=== PATIENT | female | born 1950 | race Caucasian/White ===

== ENCOUNTER 2021-03-15 14:31 | Emergency (ER) | payer MEDICARE, SELFPAY ==
--- NOTE | ~2021-03-15 | XR_ITS ---
EXAMINATION: XR SHOULDER, LEFT CLINICAL INFORMATION: Left upper arm injury COMPARISON: None TECHNIQUE: Three views of the left shoulder. FINDINGS: There is no evidence of acute fracture or dislocation of the left shoulder. No calcific tendinitis. Mild spurring about the glenohumeral joint. Mild spurring about the acromioclavicular joint. Subchondral cyst formation seen about the site of insertion of the supraspinatus tendon. XR/XR shoulder LT min 2V IMPRESSION: No acute fracture, dislocation, or calcific tendinitis of the left shoulder.
--- NOTE | ~2021-03-15 | XR_ITS ---
EXAMINATION: XR ELBOW, LEFT CLINICAL INFORMATION: Trauma, pain COMPARISON: Trauma, pain TECHNIQUE: AP, lateral, and oblique views of the left elbow. FINDINGS: There is no fracture, dislocation, or elbow capsular effusion. No joint narrowing or erosive change. There is minor spurring from the medial and lateral epicondyles. XR/XR elbow LT min 3V IMPRESSION: 1. No acute bony abnormality. No effusion. 2. Spurring medial and lateral epicondyles.
[2021-03-15 15:42] VITALS: BP 179/86; PULSE 80; RESP 18; TEMP 36.6; O2SAT 95; BMI 39.3
--- NOTE | 2021-03-15 17:06 | ED.UPPEXIN ---
HPI - Extremity Injury (Upper) General Chief Complaint: Extremity Injury, Upper Stated Complaint: FALL L SHOULDER AND ARM INJ Time Seen by Provider: 03/15/21 16:40 Source: patient and family Mode of arrival: ambulatory Limitations: no limitations History of Present Illness complaint: injury to: left, shoulder, arm and elbow Onset (ago): hour(s) (Prior to arrival) Other injuries: none Place: home Severity: mild Relieving factors: none Exacerbating factors: movement of extremity Context: fall Associated symptoms: denies other symptoms Treatments prior to arrival: other (sling immobilizer ) Related Data Allergies Allergy/AdvReac Type Severity Reaction Status Date / Time Penicillins Allergy Unknown Verified 03/15/21 15:41 Review of Systems Review of Systems: Constitutional : No Weight loss, No Fever, No Chills, No Night Sweats, No Fatigue, No Malaise ENT/Mouth : No Hearing loss, No Ear Pain, No Nasal Congestion, No Sinus Pain, No Hoarseness, No sore throat, No Rhinorrhea, No Swallowing Difficulty Eyes: No Eye Pain, No Swelling, No Redness, No Foreign Body, No Discharge, No Vision Changes Cardiovascular : No Chest Pain, No SOB, No Dyspnea on Exertion, No Orthopnea, No Edema, No Palpitations Respiratory : No Cough, No Sputum, No Wheezing, No Smoke Exposure, No Dyspnea Gastrointestinal : No Nausea, No Vomiting, No Diarrhea, No Constipation, No abdominal Pain, No Hematochezia, No Melena Genitourinary : no irregular bleeding, No Dysuria, No Urinary Frequency, No Hematuria, No Urinary Incontinence, No Urgency, No Flank Pain, No Urinary Flow Changes, No Hesitancy Musculoskeletal : + left shoulder/elbow joint pain, No Myalgias, No Joint Swelling Skin : No Skin Lesions, No rash Neuro : No Weakness, No Numbness, No Paresthesias, No Loss of Consciousness, No Dizziness, No Headache Psych : No Anxiety/Panic, No Depression, No SI/HI/AH/VH, No Social Issues, Heme/Lymph: No Bruising, No Bleeding,No Lymphadenopathy Endocrine : No Polyuria, No Polydipsia, No Temperature Intolerance Yes all other systems are reviewed and are negative PMFSH Past Medical History Attestation statement: The following information was validated with the patient. Social History Social History Advance Directives: Yes Advance Directives Information Provided: Yes Advance Directives on File: No Physical Exam Vital Signs: Vital Signs: Last Vital Signs Temp 97.8 F 03/15/21 15:42 Pulse 80 03/15/21 15:42 Resp 18 03/15/21 15:42 BP 179/86 H 03/15/21 15:42 Pulse Ox 95 03/15/21 15:42 Body Mass Index 39.3 vital signs have been reviewed as normal and appeared to be correct. Blood pressure normal Heart rate normal. Respiration rate normal. Temperature normal. Oxygen saturation normal. Appearance: Alert. Oriented X3. No acute distress. Head: Normal external exam. Normocephalic. Atraumatic. Eyes: PERRLA. EOMI. Conjunctiva and sclera normal. Eyelids normal. ENT: Pharynx normal. Uvula midline. Moist mucous membranes. Neck: Normal inspection. Neck supple. FROM. CVS: Normal heart rate and rhythm. Respiratory: No respiratory distress. Painless inspiration. Skin: Skin warm and dry. Normal skin color. Normal skin turgor. No rashes/lesions/lacerations noted. Extremities: Patient with tenderness palpation to left upper arm at the mid to distal humerus and left elbow although no obvious deformities and no obvious ligament or tendon injury. Patient has full range of motion of the left hand/wrist/elbow/shoulder. Otherwise all other Extremities exhibit normal range of motion and nontender. Neuro: Oriented X 3. No motor deficit. No sensory deficit. Reflexes normal. Normal steady gait. No focal neuro deficits noted. Vascular: + radial pulses/+ 2 distal pedal pulses/+2 dorsalis pedis b/l. Normal cap refill. No cyanosis noted to upper extremity nails and lower extremity toes nails. Course Course Course Narrative: 70-year-old female presenting to the ED with complaints of left elbow/upper arm/shoulder pain after she had a mechanical fall in her house while she was cleaning the rug and she tripped on the rug landing on her left arm. Denies head injury loss of consciousness. Not on any blood thinners. Denies any symptoms prior to the fall. Denies any symptoms after fall only pain to the left arm. X-rays obtained and negative for any acute processes. Patient placed in a sling will DC home with instructions to follow-up with PCP and to return if any new or worsening symptoms she declined any symptomatic relief. Patient understands agrees with this plan. MDM - Extremity Injury (Upper) Medical Records Attestation: I reviewed the patient's medical records. Imaging Data Left shoulder/elbow x-rays: Attestation: I personally reviewed and interpreted this imaging study as follows: Radiologist's impression: FINDINGS: There is no evidence of acute fracture or dislocation of the left shoulder. No calcific tendinitis. Mild spurring about the glenohumeral joint. Mild spurring about the acromioclavicular joint. Subchondral cyst formation seen about the site of insertion of the supraspinatus tendon.? XR/XR shoulder LT min 2V IMPRESSION: No acute fracture, dislocation, or calcific tendinitis of the left shoulder. FINDINGS: There is no fracture, dislocation, or elbow capsular effusion. No joint narrowing or erosive change. There is minor spurring from the medial and lateral epicondyles.? XR/XR elbow LT min 3V IMPRESSION: ? 1. No acute bony abnormality. No effusion. 2. Spurring medial and lateral epicondyles. Procedures Orthopedic Splinting/Casting Injury #1: Side: left Upper Extremity Injury Location: shoulder, upper arm and elbow Upper Extremity Immobilizer: sling/shoulder immobilizer Discharge Plan Discharge Clinical Impression: Sprain of upper arm, left, Fall Patient Disposition: Home, Self-Care Instructions: Sprain (ED), Shoulder Immobilizer (ED) Referrals: Aayush Ornelas PA [Primary Care Provider] - 2 days Print Language: [place] Island[place]
== END 2021-03-15 17:35 | disposition home or self-care (01) ==
PROVIDERS: Emergency Provider Emergency Medicine; PCP Physician Assistant Medical
DX: S43.402A Unspecified sprain of left shoulder joint, initial encounter (principal); W01.0XXA Fall on same level from slipping, tripping and stumbling without subsequent striking against object, initial encounter; Y93.9 Activity, unspecified; Y92.019 Unspecified place in single-family (private) house as the place of occurrence of the external cause; Y99.9 Unspecified external cause status
CPT/HCPCS: 73030; 73080; 99283

== ENCOUNTER 2024-03-21 10:17 | Emergency (ER) | payer MEDICARE, SELFPAY ==
--- NOTE | ~2024-03-21 | XR_ITS ---
EXAMINATION: XR CHEST CLINICAL INFORMATION: cough COMPARISON: None available. TECHNIQUE: Frontal and lateral views of the chest were obtained. FINDINGS: No significant abnormality is noted involving the heart, lungs, mediastinum, bony thorax or soft tissues. XR/XR chest 2V IMPRESSION: Unremarkable examination. Electronically signed by: Oneil Cunningham MD 03/21/2024 11:03 AM [facility]
[2024-03-21 10:22] VITALS: BP 183/95; PULSE 88; RESP 19; TEMP 36.6; O2SAT 95; BMI 38.4
[2024-03-21 11:23] LABS: Influenza A PCR NEGATIVE (Negative); Influenza B PCR NEGATIVE (Negative); Resp Syncy Virus RNA Qual PCR NEGATIVE (Negative); SARS COV2 PCR INHOUSE NEGATIVE (Negative)
--- NOTE | 2024-03-21 12:55 | ED_ITS ---
HPI - General Adult General Chief complaint: Upper Respiratory Symptoms Stated complaint: l side pain Time Seen by Provider: 03/21/24 11:22 Source: patient Mode of arrival: ambulatory Limitations: no limitations History of Present Illness ED Provider: SUKHJINDER Her HPI narrative: 73 year old female presents w/ cough, fatigue, malaise X 1. 5 weeks. Reports when she coughs she gets sharp pain in her mid chest. Denies cp, sob, fevers, chills, nausea, vomiting, abd pain, headache, vision changes, dizziness, weakness. is sick with simiilar sx. Related Data Previous Rx's ?Medication ?Instructions ?Recorded albuterol sulfate 90 mcg/actuation 2 inh inhalation Q4-6H PRN 03/21/24 breath activated powder inhaler shortness of breath or wheezing #1 ea doxycycline hyclate 100 mg capsule 100 mg PO BID 10 days #20 caps 03/21/24 prednisone 20 mg tablet 20 mg PO DAILY 5 days #5 tabs 03/21/24 Allergies Allergy/AdvReac Type Severity Reaction Status Date / Time Penicillins Allergy Unknown Verified 03/21/24 10:24 Review of Systems Review of Systems: Yes all other systems are reviewed and are negative [facility] Past Medical History Attestation statement: The following information was validated with the patient. Source: old records reviewed and nursing notes reviewed Social History Social History Advance Directives: No Advance Directives Information Provided: No Do you have a plan to hurt others: No Plan Physical Exam ED Vital Signs: Vital Signs - 24 hr 03/21/24 10:22 Temperature 98 F Pulse Rate 88 Respiratory Rate 19 Blood Pressure 183/95 H Pulse Oximetry 95 Oxygen Delivery Method Room Air BMI result Body Mass Index 38.4 vss Appearance: Alert.? Oriented X3.? No acute distress.? Head: Normocephalic, atraumatic, no step-offs or deformities Eyes: Pupils equal, round and reactive to light.? CVS: Normal heart rate and rhythm.? Pulses normal.? Respiratory: No respiratory distress.? Breath sounds normal.? Abdomen: Soft and nontender.? Skin: Skin warm and dry.? Normal skin color.? Normal skin turgor.? Extremities: No lower extremity edema.? No calf ttp. 5/5 strength to bilateral upper and lower extremities Neuro: Oriented X 3.? No motor deficit.? No sensory deficit. CN 2-12 intact Course Reevaluation(s) Reevaluation #1: Plan- will dc paitent w/ atbx viral testing negative, CXR no acute findings. Advised to return w/ new or worsening sx. Patient verbalizes understanding of this. Time: 13:06 Medical Decision Making Medical Decision Making MDM Narrative: 1303 73 year old female presnts w/ cough and uRI sx x 1.5 weeks. sick w/ similar sx PE benign hx and pe concerning for bronchitits vs viral illness. No signs of ARDS, pna, PE, ACS. Unlikely metabolic derangements Plan- viral testing Differential Diagnosis Differential Diagnoses: The differential diagnosis associated with the presentation includes (hx and pe concerning for bronchitits vs viral illness. No signs of ARDS, pna, PE, ACS. Unlikely metabolic derangements ) Admission/Observation Consideration of admission/observation: Escalation of care including admis miley/observation considered Lab Data Labs: Lab Results 03/21/24 Range/Units 10:32 Influenza Type A (PCR) NEGATIVE (Negative) Influenza Type B (PCR) NEGATIVE (Negative) RSV RNA Qual (PCR) NEGATIVE (Negative) SARS-CoV-2 RNA (RT-PCR) NEGATIVE (Negative) Independent Interpretation I performed an independent interpretation of an: Plain X-Ray (XR/XR chest 2V IMPRESSION: Unremarkable examination.) Radiology Impression Discussion of test interpretation with radiology: I have reviewed the radiologist's reading. Critical Care Time Critical Care Time Critical Care Time: No Discharge Plan Discharge Clinical Impression: Bronchitis Patient Disposition: Home, Self-Care Instructions: Acute Bronchitis (ED) Additional Instructions: Take your medications as prescribed. If you were prescribed antibiotics today, it is important that you take your medication to their entirety, do not skip any doses, do not finish them early. Follow-up with your primary care provider this week. Return to the emergency department with new or worsening symptoms. In case of emergency call 911 Prescriptions: New doxycycline hyclate 100 mg capsule 100 mg PO BID 10 Days Qty: 20 0RF prednisone 20 mg tablet 20 mg PO DAILY 5 Days Qty: 5 0RF albuterol sulfate 90 mcg/actuation aerosol powdr breath activated 2 inh inhalation Q4-6H PRN (Reason: shortness of breath or wheezing) Qty: 1 0RF Referrals: Silvana Caruso MD [Emergency Provider] - 2 days Aayush Ornelas PA [Primary Care Provider] - Print Language: Lao
[2024-03-21 13:35] VITALS: BP 183/95; PULSE 88; RESP 19; TEMP 36.6; O2SAT 95
== END 2024-03-21 13:36 | disposition home or self-care (01) ==
PROVIDERS: Emergency Provider Emergency Medicine; PCP Physician Assistant Medical
DX: J40 Bronchitis, not specified as acute or chronic (principal); R05.9 Cough, unspecified; R07.89 Other chest pain; Z03.818 Encounter for observation for suspected exposure to other biological agents ruled out
CPT/HCPCS: 0241U; 71046; 99282; 99283

== ENCOUNTER 2024-08-20 08:16 | Outpatient (AMB) | payer MEDICARE, SELFPAY ==
--- OUTSIDE RECORDS SUMMARY | 2024-08-20 08:21 | XMS_ITS | Clinical Summary ---
Author Organization [address] [place] [address] [place] [phone] Phone Care Team Providers Care Plant Director Name Role Phone Aayush Ornelas Primary Care Provider [phone] Allergies Active Allergy Reactions Criticality Noted Date Comments Penicillins 06/11/2005 burning on urination Medications aspirin 81 mg EC tablet Take 1 Tablet by mouth daily. Active folic acid/vit B complex and C (B COMPLEX-VITAMIN C-FOLIC ACID ORAL) Take by mouth. Activ e DOCUSATE CALCIUM ORAL Take by mouth. Ac tive multivitamin/ir on/folic acid (CENTRUM ORAL) 1 po qd Activ e albuterol HFA (PROAIR HFA ; PROVENTIL HFA ; VENTOLIN HFA) 90 mcg/actuation inhaler Inhale 1 puff by mouth every 4 (four) hours if needed for wheezing or shortness of breath. 6.7 g 4 Active triamterene-hyd roCHLOROthiazid e (DYAZIDE) 37.5-25 mg per capsule TAKE 1 CAPSULE BY MOUTH EVERY MORNING 90 capsule 1 5 Active Active Problems Problem Noted Date Diagnosed Date Reactive airway disease 11/20/2022 Internal carotid artery stenosis, right 05/21/19 23 Osteopenia 03/27/2022 Arthritis of both knees 06/26/2017 Overview (01/28/2024): S/P bilat knee replacements Patient overweight 12/23/2016 Impaired fasting glucose 05/17/2016 Plantar fasciitis 05/17/2016 Mammographic microcalcification 12/07/2012 Essential hypertension, benign 10/07/2005 Encounters Date Type Department Care Team Description 06/21/2024 8:15 AM EST Office Visit [address] [phone] Aayush Ornelas PA Essential hypertension, benign (Primary Dx); Internal carotid artery stenosis, right; Osteopenia, unspecified location; Impaired fasting glucose from Last 3 Months Immunizations Name Administration Dates Next Due COVID-19 (Moderna/Spikevax) 12yo and older 01/25/2022 Influenza Quadravalent, 0.5m l (Fluzone High-dose) 65yo and older 01/21/2023,01/25/2022,01/10/2021,01/13 Influenza trivalent, 0.5mL ( Fluzone High-dose) 65yo and older 01/21/2023,01/25/2022,01/10/2021,01/13,02/08/2019,01/12/2018,02/11/2017 Influenza trivalent, 0.5mL, preservative free (Fluarix; FluLaval; Fluzone) ages 6mo and older (Afluria) 3 years and older 02/26/2016,02/12/2015 Influenza trivalent, with pr eservative (Fluzone; Afluria) 6mo and older 02/26/2016,01/19/2014,01/28/2012,01/23,03/06/2005 Influenza, Unspecified 01/15/2020,02/11/2017, Pfizer (ages 12 & older) Biv alent, COVID-19 01/25/2022 Pfizer SARS-CoV-2 COVID-19, mRNA, LNP-S, preservative free 02/12/2021,07/25/2020,07/04/2020 Pneumococcal conjugate 13 va lent (Prevnar 13, PCV13) 2mo and older 12/23/2016 Pneumococcal polysaccharide 23 valent (Pneumovax 23) 2yo and older 01/20/2018 RSV, bivalent, protein subun it RSVpreF, 0.5mL, Preservative Free (Arexvy) 60yo and older 05/01/2023 Td Tetanus diptheria (Tdvax) 7yo and older 05/13/2022 Td, Unspecified 02/27/2001 Tdap Tetanus diptheria acell ular pertussis (Boostrix; Adacel) 7yo and older 11/27/2011 Zoster Live 01/28/2012 Zoster recombinant (Shingrix ) 19yo and older 10/10/2022,07/25/2022 Surgical History Surgery Date Site/Laterality Comments COLONOSCOPY 07/31/2005 PROCEDURE: HISTORICAL COLONOSCOPY; COMMENT: Wayne; negative (report stored on websphere process server developer) BUNIONECTOMY PROCEDURE: WI CORRJ HLX VLGS BNCTY SESMDC W/DOUBLE OSTEOTOMY KNEE SURGERY PROCEDURE: HISTORICAL KNEE SURGERY; COMMENT: left arthroscopy HEMORRHOID SURGERY PROCEDURE: HISTORICAL HEMMORROIDECTOMY TOTAL KNEE ARTHROPLASTY 04/16/2013 PROCEDURE: HISTORICAL TOTAL KNEE REPLACE; COMMENT: right and left tkr BREAST LUMPECTOMY 11/2012 PROCEDURE: ---- BREAST LUMP BIOPSY ----; COMMENT: benign COLONOSCOPY 11/21/2015 PROCEDURE: HISTORICAL COLONOSCOPY; COMMENT: 4 mm rectal polyp: edema, not a polyp. BREAST BIOPSY 2012 Right PROCEDURE: BX BREAST; PERC NEEDLE CORE W/IMAG GUID; COMMENT: rt. breast bx.-benign Medical History Medical History Date Comments Essential hypertension, benign 10/07/2005 D X:Essential hypertension, benign Plantar fasciitis 05/17/2016 DX:Plantar fas ciitis Arthritis of both knees 06/26/2017 DX:Arthr itis of both knees Family History Medical History Relation Name Comments Ovarian cancer Aunt Breast cancer Other mat aunt Alzheimer's disease Sister 1 Stroke Sister 1 Colon cancer Neg Hx Relation Name Status Comments Aunt Brother 1 Alive htn Brother 2 Alive htn Brother 3 Alive htn tia Father (Age 81) htn copd Mother (Age 84) dm Other mat aunt Sister 1 Alive htn Sister 2 Alive htn Sister 3 Alive knee replacemen t Social History Tobacco Use Types Packs/Day Years Used Date Smoking Tobacco: Never Smokeless Tobacco: Never Tobacco Cessation:Counseling Given: Not Answered Alcohol Use Standard Drinks/Week Comments No 0 (1 standard drink = 0.6 oz pur e alcohol) Housing Instability Answer Date Recorde d Are you worried that in the next 2 months you may not have stable housing? No 06/18/2024 Food Access & Nutrition Answer Date Rec orded Do you have access to a vari ety of food including fruits and vegetables? Yes 06/18/2024 Access to Healthcare Answer Date Record ed Within the last 3 months, ho w many times did you visit the emergency department for your medical care? 0 06/18/2024 Health Literacy Answer Date Recorded How often do you need to hav e someone help you when you read instructions, pamphlets, or other written material from your doctor or pharmacy? Never 06/18/2024 Caregiver: How often do you need to have someone help you when you read instructions, pamphlets, or other written material from your doctor or pharmacy? Not on file 06/18/2024 Financial Risk Answer Date Recorded How hard is it for you to pa y for the very basics like food, housing, medical care, and air conditioning / heating? Not very hard 06/18/2024 Transportation Answer Date Recorded Has the lack of transportati on kept you from meetings, work, or from getting things needed for daily living? No Has the lack of transportati on kept you from medical appointments or from getting medications? No 06/18/2024 Social Isolation Answer Date Recorded How often do you feel lonely or isolated from th ose around you? Never 06/18/2024 Food Risk Answer Date Recorded Within the past 12 months we worried whether our food would run out before we got money to buy more. Never true 06/18/2024 Within the past 12 months th e food we bought just didn't last and we didn't have money to get more. Never true 06/18/2024 Dependent Care Answer Date Recorded Do you need help finding or paying for care for your loved ones. For example, early childhood education specialist or elderly care for an older adult? No 06/18/2024 Education Answer Date Recorded Do you think completing more education or training, like finishing a GED, going to college, or learning a trade, would be helpful for you? N/A 06/18/2024 Employment and Income Answer Date Recor ded During the last four weeks, have you been actively looking for work? No 06/18/2024 Living Situation Answer Date Recorded What is your living situation? 0 06/18/2024 Comments No Sex and Gender Information Value Date Recorded Sex Assigned at Not on file Legal Sex Female 3:52 AM EST Gender Identity Not on file Sexual Orientation Not on file Obstetrics History Para Term AB IAB SAB Ectopic Multiple Livin g Live Births 3 3 3 3 Date Outcome GA Total Labor Labor/2nd/3rd Weight Sex Type Anes PTL Amy A1 A5 Name Clin Term Term Term Last Filed Vital Signs Vital Sign Reading Time Taken Comments Blood Pressure 120/80 06/21/2024 8:30 AM EST Pulse 73 06/21/2024 8:15 AM EST Temperature 35.9 ??C (96.6 ??F) 06/21/2024 8:15 AM ES T Respiratory Rate 13 06/21/2024 8:15 AM EST Oxygen Saturation 97% 03/29/2024 3:34 PM EST Inhaled Oxygen Concentration - - Weight 101 kg (222 lb 3.2 oz) 06/21/2024 8:15 AM EST Height 157.5 cm (5' 2 ) 06/21/2024 8:15 AM EST Body Mass Index 40.64 06/21/2024 8:15 AM EST Plan of Treatment Upcoming Encounters Date Type Department Care Team (Late st Contact Info) Description 12/20/2024 8:00 AM EDT Office Visit Adult Medicine [facility] [address] [place] [phone] Aayush Ornelas PA [address] [place] [address] 01/31/2025 10:45 AM EDT Ancillary Procedure [facility] [address] [place] [phone] 03/14/2025 9:30 AM EST Office Visit Vascular Surgery - [place] [address] [place] [phone] Amy Tompkins PA [address] [facility] [address] [place] [address] Health Maintenance Due Date Last Done Comments COVID-19 Vaccine ( season) 2024 02/12/2024, 01/21/2023, 01/25/2022, Additional history exists Medicare Annual Wellness Visit 2024 12/15/2023 Depression Screening 06/18/2025 06/18/2024, 12/15/19 Social Influencers of Health Screening 06/18/2025 06/18/2024 Falls Risk Assessment 06/21/2025 06/21/2024, 024 Hypertension/CHF/CAD Annual BMP Blood Test 06/21/2025 06/21/2024, 05/19/2023 Colorectal Cancer Screening: Colonoscopy 11/20/2025 11/21/2015 Breast Cancer Screening 04/14/2026 04/14/20 24, 04/03/2023, 03/27/2022, Additional history exists Cholesterol Screening (Lipid Panel) 06/21/2029 06/21/2024, 05/19/2023 Osteoporosis Screening (Bone Density Screening) 03/27/2032 03/27/2022, 03/10/2018 DTaP,Tdap,and Td Vaccines (4 - Td or Tdap) 05/13/2032 05/13/2022, 11/27/2011, 02/27/2001 Hepatitis C Screening Completed 11/01/2014 Pneumococcal Vaccine: 50+ Years Completed 01/20/2018, 12/23/2016 Zoster Vaccines Completed 10/10/2022, 06/28, 01/28/2012 Influenza Vaccine Discontinued 01/21/2023, , 01/25/2022, Additional history exists RSV Immunization Adult Patients Completed 05/01/2023 HIB Vaccines Aged Out No longer eligi ble based on patient's age to complete this topic HPV Vaccines Aged Out No longer eligi ble based on patient's age to complete this topic Hepatitis A Vaccines Aged Out No long er eligible based on patient's age to complete this topic Hepatitis B Vaccines Aged Out No long er eligible based on patient's age to complete this topic IPV Vaccines Aged Out No longer eligi ble based on patient's age to complete this topic MMR Vaccines Aged Out No longer eligi ble based on patient's age to complete this topic Meningococcal ACWY Vaccine Aged Out N o longer eligible based on patient's age to complete this topic Meningococcal B Vaccine Aged Out No l onger eligible based on patient's age to complete this topic RSV Immunization Patients Under 20 months Aged Out No longer eligible based on patient's age to complete this topic Varicella Vaccines Aged Out No longer eligible based on patient's age to complete this topic Procedures Procedure Name Priority Date/Time Associated Diagnosis Comments LIPID PANEL WITH REFLEX TO DIRECT LDL Routine 06/21/2024 9:03 AM EST Essential hypertension, benign Internal carotid artery stenosis, right Osteopenia, unspecified location Impaired fasting glucose COMPREHENSIVE METABOLIC PANEL Routine 06/21/2024 9:03 AM EST Essential hypertension, benign Internal carotid artery stenosis, right Osteopenia, unspecified location Impaired fasting glucose HEMOGLOBIN A1C Routine 06/21/2024 9:03 AM EST Essential hypertension, benign Internal carotid artery stenosis, right Osteopenia, unspecified location Impaired fasting glucose MAMMO DIGITAL SCREENING W ILIR BILAT Routine 04/14/2024 10:09 AM EST Encounter for screening mammogram for breast cancer DEPRESSION SCREENING Routine 12/15/2023 FALLS RISK ASSESSMENT Routine 12/15/2023 DXA BONE DENSITY STUDY 1+ SITS AXIAL SKEL Routine 03/27/2022 1:35 PM EST Impaired fasting glucose Essential (primary) hypertension Encounter for general adult medical examination without abnormal findings COLONOSCOPY Routine 11/21/2015 HEPATITIS C SCREENING Routine 11/01/2014 from Last 3 Months or Most Recently Relevant to Health Maintenance Results * Lipid panel with reflex to direct LDL (06/21/2024 9:03 AM EST) [facility] Cholesterol 170 0 - 200 mg/dL LAB CHEMISTRY METHOD 06/21/2024 1:41 PM EST [facility] Triglycerides 142 0 - 150 mg/dL LAB CHEMISTRY METHOD 06/21/2024 1:41 PM EST [facility] HDL 61 >=40 mg/dL LAB CHEMISTRY METHOD 06/21/2024 1:41 PM [facility] LDL Calculated 81 0 - 100 mg/dL LAB CHEMISTRY METHOD 06/21/2024 1:41 PM [facility] VLDL Cholesterol Brian 28.4 mg/dL LAB CHEMISTRY METHOD 06/21/2024 1:41 PM [facility] Non HDL Chol. (LDL+VLDL) 109 <145 mg/dL LAB CHEMISTRY METHOD 06/21/2024 1:41 PM [facility] Chol/HDL Ratio 2.8 0.0 - 4.4 LAB CHEMISTRY METHOD 06/21/2024 1:41 PM [facility] Blood Venous blood specimen / Unknown Venipuncture / Unknown 06/21/2024 9:03 AM EST 06/21/2024 9:03 AM EST Aayush SLAUGHTER LAB BLOOD ORDERABLES Viky l Result [facility] [address] [place] [address], * Hemoglobin A1c (06/21/2024 9:03 AM EST) Hemoglobin A1C 5.6 <6.5 % LAB CHEMISTRY METHOD 06/21/2024 1:55 PM [facility] Mean Bld Glu Estim. 114 mg/dL LAB CHEMISTRY METHOD 06/21/2024 1:55 PM [facility] Blood Venous blood specimen / Unknown Venipuncture / Unknown 06/21/2024 9:03 AM EST 06/21/2024 9:03 AM EST Aayush SLAUGHTER LAB BLOOD ORDERABLES Viky l Result [facility] [address] [place] [address], [place] [phone] * (ABNORMAL) Comprehensive metabolic panel (06/21/2024 9:03 AM EST) Sodium 140 133 - 145 mmol/L LAB CHEMISTRY METHOD 06/21/2024 1:41 PM EST [facility] Potassium 4.1 3.5 - 5.5 mmol/L LAB CHEMISTRY METHOD 06/21/2024 1:41 PM [facility] Chloride 104 96 - 110 mmol/L LAB CHEMISTRY METHOD 06/21/2024 1:41 PM [facility] CO2 29 21 - 32 mmol/L LAB CHEMISTRY METHOD 06/21/2024 1:41 PM [facility] Anion Gap 7 3 - 11 LAB CHEMISTRY METHOD 06/21/2024 1:41 PM [facility] Glucose 106(H) 70 - 100 mg/dL LAB CHEMISTRY METHOD 06/21/2024 1:41 PM [facility] BUN 10 5 - 25 mg/dL LAB CHEMISTRY METHOD 06/21/2024 1:41 PM [facility] Creatinine 0.72 0.50 - 1.10 mg/dL LAB CHEMISTRY METHOD 06/21/2024 1:41 PM [facility] eGFR 89 >=60 mL/min/1. 73m2 LAB CHEMISTRY METHOD 06/21/2024 1:41 PM [facility] Comment:Calculation based on the??Chronic Kidney Disease Epidemiology Collaboration (CKD-EPI) equation refit??without adjustment for race. BUN/Creatinine Ratio 13.9 LAB CHEMISTRY METHOD 06/21/2024 1:41 PM [facility] Calcium 10.4 8.5 - 10.5 mg/dL LAB CHEMISTRY METHOD 06/21/2024 1:41 PM [facility] AST (SGOT) 28 10 - 42 unit/L LAB CHEMISTRY METHOD 06/21/2024 1:41 PM [facility] ALT (SGPT) 29 10 - 60 unit/L LAB CHEMISTRY METHOD 06/21/2024 1:41 PM [facility] Alkaline Phosphatase 99 42 - 121 unit/L LAB CHEMISTRY METHOD 06/21/2024 1:41 PM [facility] Total Protein 6.9 6.0 - 8.0 g/dL LAB CHEMISTRY METHOD 06/21/2024 1:41 PM [facility] Albumin 4.0 3.2 - 5.0 g/dL LAB CHEMISTRY METHOD 06/21/2024 1:41 PM [facility] Total Bilirubin 0.8 0.0 - 1.4 mg/dL LAB CHEMISTRY METHOD 06/21/2024 1:41 PM [facility] Blood Venous blood specimen / Unknown Venipuncture / Unknown 06/21/2024 9:03 AM EST 06/21/2024 9:03 AM EST Aayush SLAUGHTER LAB BLOOD ORDERABLES Viky palma Result [facility] [address] [place] [address], * MG Mammo Digital Screening w Ilir bilat (04/14/2024 10:09 AM EST) Anatomical Region Laterality Modality Breast Bilateral Mammography 04/14/2024 4:51 PM EST Impressions 04/14/2024 4:56 PM EST No mammographic evidence for malignancy. BI-RADS CATEGORY: 1 - NEGATIVE RECOMMENDATION: Screening bilateral mammogram is recommended in 1 year. Screening bilateral mammogram is recommended in 1 year. -------- FINAL REPORT -------- Dictated By: Monik Cope Dictated Date: 04/14/2024 16:51 ET Assigned Physician: Monik Cope Reviewed and Electronically Signed By: Monik Cope Signed Date: 04/14/2024 16:56 ET Workstation ID: [id number] Transcribed By: Self Edit Transcribed Date: 04/14/2024 16:51 ET Narrative 04/14/2024 4:56 PM EST EXAMINATION TYPE: MG MAMMO DIGITAL SCREENING W ILIR BILAT DATE OF EXAM ORDERED: 04/14/2024 9:49 AM COMPARISON prior mammograms, latest 04/03/2023. REASON FOR STUDY: ??Breast cancer screen, avg risk, asymptomatic (Age => 40y) TECHNIQUE: Bilateral mediolateral oblique and craniocaudal views ??were obtained digitally with 3-D mammogram (digital breast tomosynthesis) with CAD. Computer- aided detection was utilized in evaluation of this examination (SecondLook; iCAD). FINDINGS: The breast tissue distribution pattern is unchanged. There is no suspicious mass, suspicious calcifications or suspicious architectural distortion. BREAST DENSITY: B - There are scattered areas of fibroglandular density. Procedure Note Monik Cope MD - 04/14/2024 EXAMINATION TYPE: MAMMO DIGITAL SCREENING W ILIR BILAT DATE OF EXAM ORDERED: 04/14/2024 9:49 AM COMPARISON prior mammograms, latest 04/03/2023. REASON FOR STUDY: Breast cancer screen, avg risk, asymptomatic (Age =>40y) TECHNIQUE: Bilateral mediolateral oblique and craniocaudal views wereobtained digitally with 3-D mammogram (digital breast tomosynthesis) withCAD. Computer- aided detection was utilized in evaluation of thisexamination (SecondLook; iCAD). FINDINGS: The breast tissue distribution pattern is unchanged. There is nosuspicious mass, suspicious calcifications or suspicious architecturaldistortion. BREAST DENSITY: B - There are scattered areas of fibroglandular density. IMPRESSION: No mammographic evidence for malignancy. BI-RADS CATEGORY: 1 - NEGATIVE RECOMMENDATION: Screening bilateral mammogram is recommended in 1 year. Screeningbilateral mammogram is recommended in 1 year. -------- FINAL REPORT -------- Dictated By: Monik Cope Dictated Date: 04/14/2024 16:51 ET Assigned Physician: Monik Cope Reviewed and Electronically Signed By: Monik Cope Signed Date: 04/14/2024 16:56 ET Workstation ID: [id number] Transcribed By: Self Edit Transcribed Date: 04/14/2024 16:51 ET Result [facility] Aayush SLAUGHTER IMG BI PROCEDURES Final R esult * Falls Risk Assessment (12/15/2023) Falls Risk Assessment Abstracted Historical Provider MD HEALTH MAINTENANCE Final Result * Depression Screening (12/15/2023) Depression Screening Abstracted Historical Provider MD HEALTH MAINTENANCE Final Result * DXA BONE DENSITY STUDY 1+ SITS AXIAL SKEL (03/27/2022 1:35 PM EST) Anatomical Region Laterality Modality Bone Densitometr y 11/02/2021 11:0 7 AM EDT Narrative 03/27/2022 1:50 PM EST BONE DENSITY ? Lumbar Spine T-score is -0.3 ?? (SD relative to 20-29 y/o adult) Z-score is +1.9 ??(SD relative to age matched peers) This is normal by criteria defined by the WHO. Left Hip T-score is -1.8 Z-score is ??0.0 This is consistent with osteopenia by criteria defined by the WHO. Comparison exam(s): no statistically significant change in the bone density of the hip and lumbar spine when compared to most recent bone density examination ?? Confidence level is +/-95%. Impression: Based on the World Health Organization criteria, Joyce Mcgill should be classified as having osteopenia. This patient has a 9.3% risk of major osteoporotic fracture and a 1.4% risk of hip fracture over the next 10 years. (World Health Organization Fracture Risk Assessment) [facility] Department of Internal Medicine recommends using National Osteoporosis Foundation (NOF) guidelines in treatment decisions related to osteoporosis. NOF guidelines suggest considering treatment for postmenopausal women and men aged 50 or older presenting with the following: History of hip or vertebral fracture. T-score less than or equal to -2.5 (DXA) at the femoral neck, total hip, or spine, after appropriate evaluation to exclude secondary causes. Low bone mass (T-score between -1.0 and -2.5 at the femoral neck or spine) AND a 10-year probability of a hip fracture greater than or equal to 3% OR a 10-year probability of a major osteoporosis-related fracture greater than or equal to 20% based on the [place]-adapted WHO algorithm Please note that all treatment decisions require clinical judgment and consideration of individual patient factors, including patient preferences, co-morbidities, previous drug use, risk factors not captured in the FRAX model (e.g., frailty, falls, vitamin D deficiency, increased bone turnover, interval significant decline in bone density) and possible under- or over-estimation of fracture risk by FRAX. Procedure Note Nadeem Brock MD - 06/02/2023 BONE DENSITY Lumbar Spine T-score is -0.3 (SD relative to 20-29 y/o adult) Z-score is +1.9 (SD relative to age matched peers) This is normal by criteria defined by the WHO. Left Hip T-score is -1.8 Z-score is 0.0 This is consistent with osteopenia by criteria defined by the WHO. Comparison exam(s): no statistically significant change in the bonedensity of the hip and lumbar spine when compared to most recent bonedensity examination Confidence level is +/-95%. Impression: Based on the World Health Organization criteria, Joyce Mcgill shouldbe classified as having osteopenia. This patient has a 9.3% risk of majorosteoporotic fracture and a 1.4% risk of hip fracture over the next 10years. (World Health Organization Fracture Risk Assessment) [facility] Department of Internal Medicine recommendsusing National Osteoporosis Foundation (NOF) guidelines in treatmentdecisions related to osteoporosis. NOF guidelines suggest consideringtreatment for postmenopausal women and men aged 50 or older presentingwith the following: History of hip or vertebral fracture. T-score less than or equal to -2.5 (DXA) at the femoral neck, total hip,or spine, after appropriate evaluation to exclude secondary causes. Low bone mass (T-score between -1.0 and -2.5 at the femoral neck or spine)AND a 10-year probability of a hip fracture greater than or equal to 3% ORa 10-year probability of a major osteoporosis-related fracture greaterthan or equal to 20% based on the [place]-adapted WHO algorithm Please note that all treatment decisions require clinical judgment andconsideration of individual patient factors, including patientpreferences, co-morbidities, previous drug use, risk factors not capturedin the FRAX model (e.g., frailty, falls, vitamin D deficiency, increasedbone turnover, interval significant decline in bone density) and possibleunder- or over-estimation of fracture risk by FRAX. Aayush SLAUGHTER [place] DXA PROCEDURES Final Result * Colonoscopy (11/21/2015) [facility] Colonoscopy Negative, Abstracted Comment:rectal polyp was delonte [place], not a polyp. Please schedule the patient for Colonoscopy with Leonel Black MD in 10 years. Anatomical Region Laterality Modality Other Historical Provider HEALTH MAINTENANCE Final Result * Hepatitis C Screening (11/01/2014) [facility] Hepatitis C Screening Abstracted Historical Provider HEALTH MAINTENANCE Final Result from Last 3 Months or Most Recently Relevant [id number] MEDICARE [facility] Care Teams Plant Director Relationship Specialty Start Date End Date Aayush Ornelas PA [address] [place] [address] PCP - General Internal Medicine 07/05/20
--- NOTE | 2024-08-20 09:23 | AM.OFFWIN_ITS ---
Intake Vital Signs 08/20/24 09:27 Weight 218 lb BP 128/80 Blood Pressure Location Rt brachial Position Sitting Pulse 78 Pulse Source Pulse Oximeter Temp 97.9 F Temp Source Oral Pulse Oximetry (%) 98 Oxygen Delivery Method Room Air Intake Visit Reasons: [employer]FA[employer]ING WORK[employer]-severe cough Intake Note: Patient here for severe cough and SOB that has been present for about 1 week. 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 Has been trying tlon-myx-bplekph cough medicine and utilizing albuterol inhaler at home with minimal relief. States that coughing is keeping her up all night, and starting to make her ribs sore. She denies any fever or chills. History of asthma. [facility] Social History Patient Tobacco Use Status: Never used Tobacco Review of Systems Const All systems reviewed & are unremarkable except as noted in HPI and below Physical Exam Vital Signs: Last Vital Signs Temp 97.9 F 08/20/24 09:27 Pulse 78 08/20/24 09:27 BP 128/80 08/20/24 09:27 Pulse Ox 98 08/20/24 09:27 Oxygen Delivery Method Room Air 08/20/24 09:27 Const General: cooperative, healthy appearing and comfortable Limitations: no limitations HEENT Head: Yes normal to inspection Ears: hearing grossly normal bilaterally General nose exam: Normal external nose present Face and sinus: Yes normal facial exam Mouth: Normal oral and palatal mucosa present Throat: Yes posterior oropharynx normal Resp Effort & Inspection: normal respiratory effort and Actively coughing Quality: dry Auscultation: wheezes (mild) upper bilaterally Cardio Rate: regular rate Rhythm: regular rhythm Heart sounds: S1 normal heart sound present and S2 normal heart sound present Skin General skin exam: no rashes or lesions noted Extrem General: Yes capillary refill normal and Yes no clubbing, cyanosis or edema Psych Appearance: grossly normal Mental Status: mental status grossly normal Speech and movement: Normal speech and movement present Assessment & Plan Assessment & Plan (1) Acute asthmatic bronchitis: Code(s): J45.909 - Unspecified asthma, uncomplicated Plan: Will start patient on a short course of Prednisone and also Benzonatate. Reviewed indications, use, possible side effects of medications. She can contin ue to utilize albuterol inhaler as needed. If she does not improve with treatment, or symptoms worsen/new symptoms develop, she can return to the clinic for further evaluation. She verbalizes understanding and agrees to plan. Medications: New prednisone 40 mg (2 x 20 mg) PO DAILY 5 days 10 tabs 0RF J45.909 - Unspecified asthma, uncomplicated benzonatate Take one tablet by mouth up to twice a day as needed for cough. 100 mg PO BID 7 days PRN 14 caps 0RF cough R05.9 - Cough, unspecified Discontinued doxycycline hyclate Discontinued Reason: Patient Completed Course 100 mg PO BID 10 days 20 caps 0RF prednisone Discontinued Reason: Patient Completed Course 20 mg PO DAILY 5 days 5 tabs 0RF Coding Level of Care Code Est Pt Level 4 (07122) Diagnoses Acute asthmatic bronchitis J45.909
[2024-08-20 09:27] VITALS: BP 128/80; PULSE 78; TEMP 36.6; O2SAT 98
== END 2024-08-20 09:55 | disposition home or self-care (01) ==
PROVIDERS: PCP Physician Assistant Medical; Visit Provider Nurse Practitioner Family
DX: J45.909 Unspecified asthma, uncomplicated (principal)

== ENCOUNTER → 2024-08-20 08:16 | Outpatient (BNVA) | payer MEDICARE, SELFPAY | PROVIDERS: PCP Physician Assistant Medical; Visit Provider Nurse Practitioner Family | DX: J45.909 Unspecified asthma, uncomplicated (principal) | CPT/HCPCS: 99212 ==